=== PATIENT | male | born 1950 | race Caucasian/White ===

== ENCOUNTER 2019-08-15 06:00 | Outpatient (RCR) | payer MEDICARE, OTHER, SELFPAY | END 2019-08-29 23:59 | disposition home or self-care (01) | LOC: APT 06:00 | PROVIDERS: Family Provider Nurse Practitioner; PCP Nurse Practitioner; Referring Provider Psychiatry & Neurology Neurology; Visit Provider Psychiatry & Neurology Neurology | DX: G20 Parkinson's disease (principal) | CPT/HCPCS: 97163 ==

== ENCOUNTER 2019-10-12 06:00 | Outpatient (RCR) | payer MEDICARE, OTHER, SELFPAY | END 2019-10-29 23:59 | disposition home or self-care (01) | LOC: APT 06:00 | PROVIDERS: PCP Nurse Practitioner; Visit Provider Psychiatry & Neurology Neurology | DX: G20 Parkinson's disease (principal) | CPT/HCPCS: 97110; 97164 ==

== ENCOUNTER → 2019-10-19 09:04 | Outpatient (BNVA) | payer MEDICARE, SELFPAY | PROVIDERS: Family Provider Nurse Practitioner; PCP Nurse Practitioner; Visit Provider Nurse Practitioner | DX: G31.83 Neurocognitive disorder with Lewy bodies (principal); F02.80 Dementia in other diseases classified elsewhere, unspecified severity, without behavioral disturbance, psychotic disturbance, mood disturbance, and anxiety; E55.9 Vitamin D deficiency, unspecified; Z12.5 Encounter for screening for malignant neoplasm of prostate; Z13.6 Encounter for screening for cardiovascular disorders | CPT/HCPCS: 80053; 80061; 81000; 82306; 82533; 82607; 84439; 84443; 84481; 85025; G0103 ==

== ENCOUNTER 2019-10-30 16:14 | Outpatient (RCR) | payer MEDICARE, OTHER, SELFPAY | END 2019-11-28 23:59 | disposition home or self-care (01) | LOC: APT 16:14 | PROVIDERS: PCP Nurse Practitioner; Visit Provider Psychiatry & Neurology Neurology | DX: G20 Parkinson's disease (principal) | CPT/HCPCS: 97110; 97164 ==

== ENCOUNTER 2020-03-06 06:00 | Outpatient (RCR) | payer MEDICARE, SELFPAY | END 2020-03-30 23:59 | disposition home or self-care (01) | LOC: AST 06:00 | PROVIDERS: PCP Nurse Practitioner; Visit Provider Nurse Practitioner Gerontology | DX: R13.10 Dysphagia, unspecified (principal); G20 Parkinson's disease; R49.8 Other voice and resonance disorders | CPT/HCPCS: 92507; 92524 ==

== ENCOUNTER 2020-03-31 06:00 | Outpatient (RCR) | payer MEDICARE, SELFPAY | END 2020-04-29 23:59 | disposition home or self-care (01) | LOC: AST 06:00 | PROVIDERS: PCP Nurse Practitioner; Visit Provider Nurse Practitioner Gerontology | DX: G20 Parkinson's disease (principal); R13.10 Dysphagia, unspecified | CPT/HCPCS: 92507 ==

== ENCOUNTER 2020-04-30 06:00 | Outpatient (RCR) | payer MEDICARE, SELFPAY | END 2020-05-30 23:59 | disposition home or self-care (01) | LOC: AST 06:00 | PROVIDERS: PCP Nurse Practitioner; Visit Provider Nurse Practitioner Gerontology | DX: R13.10 Dysphagia, unspecified (principal); R49.9 Unspecified voice and resonance disorder; G20 Parkinson's disease | CPT/HCPCS: 92507 ==

== ENCOUNTER → 2020-06-17 13:52 | Outpatient (BNVA) | payer MEDICARE, SELFPAY | PROVIDERS: PCP Nurse Practitioner; Visit Provider Nurse Practitioner | DX: N39.42 Incontinence without sensory awareness (principal) | CPT/HCPCS: 81000 ==

== ENCOUNTER → 2020-07-25 14:47 | Outpatient (BNVA) | payer MEDICARE, SELFPAY | PROVIDERS: PCP Nurse Practitioner; Visit Provider Nurse Practitioner Family | DX: N39.42 Incontinence without sensory awareness (principal) | CPT/HCPCS: 81003 ==

== ENCOUNTER 2020-08-14 20:00 | Outpatient (CLI) | payer MEDICARE, SELFPAY | END 2020-08-14 20:01 | disposition home or self-care (01) | LOC: SLEEP 08-15 09:45 | PROVIDERS: PCP Nurse Practitioner; Visit Provider Nurse Practitioner | DX: G47.33 Obstructive sleep apnea (adult) (pediatric) (principal) | CPT/HCPCS: 95811 ==

== ENCOUNTER → 2020-09-03 14:32 | Outpatient (BNVA) | payer MEDICARE, SELFPAY | PROVIDERS: PCP Nurse Practitioner; Visit Provider Urology | DX: N39.42 Incontinence without sensory awareness (principal) | CPT/HCPCS: 81003 ==

== ENCOUNTER → 2020-09-10 09:51 | Outpatient (BNVA) | payer MEDICARE, SELFPAY | PROVIDERS: PCP Nurse Practitioner; Visit Provider Nurse Practitioner Family | DX: S89.92XA Unspecified injury of left lower leg, initial encounter (principal); M25.562 Pain in left knee; X58.XXXA Exposure to other specified factors, initial encounter | CPT/HCPCS: 73562 ==

== ENCOUNTER → 2020-09-16 14:17 | Outpatient (BNVA) | payer MEDICARE, SELFPAY | PROVIDERS: PCP Nurse Practitioner; Visit Provider Nurse Practitioner Family | DX: S89.92XD Unspecified injury of left lower leg, subsequent encounter (principal); M79.605 Pain in left leg; X58.XXXD Exposure to other specified factors, subsequent encounter | CPT/HCPCS: 73590 ==

== ENCOUNTER 2021-03-18 06:00 | Outpatient (RCR) | payer MEDICARE, SELFPAY | END 2021-03-30 23:59 | disposition home or self-care (01) | LOC: APT 06:00 | PROVIDERS: PCP Nurse Practitioner; Referring Provider Nurse Practitioner Family; Visit Provider Nurse Practitioner Family | DX: G20 Parkinson's disease (principal) | CPT/HCPCS: 97110; 97162 ==

== ENCOUNTER → 2021-03-25 14:28 | Outpatient (BNVA) | payer MEDICARE, SELFPAY | PROVIDERS: PCP Nurse Practitioner; Visit Provider Urology | DX: N39.42 Incontinence without sensory awareness (principal) | CPT/HCPCS: 81003 ==

== ENCOUNTER 2021-03-31 06:00 | Outpatient (RCR) | payer MEDICARE, SELFPAY | END 2021-04-29 23:59 | disposition home or self-care (01) | LOC: APT 06:00 | PROVIDERS: PCP Nurse Practitioner; Referring Provider Nurse Practitioner Family; Visit Provider Nurse Practitioner Family | DX: G20 Parkinson's disease (principal) | CPT/HCPCS: 97110; 97164; 97530 ==

== ENCOUNTER → 2021-11-04 08:27 | Outpatient (BNVA) | payer MEDICARE, SELFPAY | PROVIDERS: PCP Nurse Practitioner; Visit Provider Nurse Practitioner | DX: E55.9 Vitamin D deficiency, unspecified (principal); R53.83 Other fatigue; Z13.6 Encounter for screening for cardiovascular disorders; Z12.5 Encounter for screening for malignant neoplasm of prostate | CPT/HCPCS: 80053; 80061; 82306; 82533; 82607; 84403; 84443; 85025; G0103 ==

== ENCOUNTER → 2021-11-13 10:54 | Outpatient (BNVA) | payer MEDICARE, SELFPAY | PROVIDERS: PCP Nurse Practitioner; Referring Provider Anesthesiology Pain Medicine; Visit Provider Physician Assistant | DX: M47.816 Spondylosis without myelopathy or radiculopathy, lumbar region (principal); Z98.1 Arthrodesis status | CPT/HCPCS: 72110; 99203; 99204 ==

== ENCOUNTER 2021-12-26 05:15 | Day surgery (SDC) | payer MEDICARE, SELFPAY ==
[2021-12-24 13:34] VITALS: BMI 29.7
[2021-12-24 14:06] LABS: Basophils % 0.4 %; Eosinophils # 0.1 10^3/uL (0.0-0.8); Eosinophils % 1.3 %; Hematocrit 41.9 % (42.0-52.0); Hemoglobin 13.7 g/dL (11.7-16.6); Lymphocytes # 1.6 10^3/uL (0.8-4.8); Mean Corpuscular HGB Conc 32.7 g/dL (30.0-36.0); Mean Corpuscular Volume 94.8 fl (80-94); Mean Platelet Volume 12.3 fL (7.4-10.4); Monocytes # 0.7 10^3/uL (0.2-0.9); Monocytes % 10.6 %; Neutrophils # 4.24 10^3/uL (1.8-7.7); Neutrophils % 63.4 %; Nucleated Red Blood Cells % 0 %; Platelet Count 198 10^3/cmm (130-400); Red Blood Count 4.42 10^6/uL (4.1-5.3); Red Cell Distribution Width 13.2 % (12.1-15.1); White Blood Count 6.7 10^3/uL (4.0-10.0)
[2021-12-24 14:51] LABS: Anion Gap 14.6 (5-19); Blood Urea Nitrogen 23 mg/dL (8-23); Calcium 9.8 mg/dL (8.5-10.5); Carbon Dioxide 27 mmol/L (22-29); Chloride 106 mmol/L (98-107); Glucose 112 mg/dL (65-115); Osmolality Calculated 300 mOsm/kg (285-295); Potassium 4.6 mmol/L (3.5-5.1); Sodium 143 mmol/L (136-145)
--- NOTE | 2021-12-24 16:12 | P.ANESASSM_ITS ---
Pre-Anesthetic Assessment Height/Weight: Height 1.7 m Weight 86.183 kg Preop Diagnosis: back pain Operation Date: 12/26/21 07:00 Proposed Procedures p Spinal Cord Stimulator Placement 69388/52085/M54.9(Not Applicable) - Addison Hill DO Familial anesthetic complications: none Was Beta Kennedi taken within 24 hours: N/A Was Clonidine taken within 24 hours: N/A Social No alcohol and No tobacco Exam alert, oriented x 3, clear to auscultation bilaterally and regular rate & rhythm Airway Submandibular: within normal limits Cervical ROM: within normal limits Mallampati: Class II Dentition: chipped Pulmonary Sleep Apnea CV/HEM None reported BPH Hepatic None reported GI Gastroesophageal Reflux Disease Metabolic None reported Musc/skel None reported Neuropsych Anxiety, Depression and Neuropathy (Neuralgia ) Parkinson Gait instability Anesthetic Plan ASA status: 3 Anesthesia: Anesthesia Evaluation and General Other: We discussed risk and benefits of general anesthesia including PONV, sore throat (sometimes severe), corneal abrasion, positioning and peripheral nerve injuries, life threatening allergic reaction, post operative ICU admission requiring prolonged intubation, aspiration, stroke, heart attack, , and rare incidences of recall. Patient consents to proceed with general anesthesia. Risk of > 500 ml blood loss (7ml/kg in children): No Medications/Allergies Home Medications Medication Instructions Recorded Confirmed Last Taken Type carbidopa 25 mg-levodopa 100 mg 0.5 tab PO BID 07/25/20 12/24/21 Unknown History tablet (Sinemet) zinc 50 mg tablet 50 mg PO DAILY 07/25/20 12/24/21 Unknown History cpap machine w/humidifer #1 ea 11/15/20 11/13/21 Unknown Rx nystatin 100,000 unit/gram topical 1 applic topical BID #30 grams 11/03/21 12/24/21 Unknown Rx cream Disposable nebulizer circuit #1 ea 11/12/21 11/13/21 Unknown Rx nebulizers #1 ea 11/12/21 11/13/21 Unknown Rx calcium phosphate,dibasic 77 1 tab PO DAILY 12/24/21 12/24/21 Unknown History mg-vitamin D3 400 unit tablet Allergies Allergy/AdvReac Type Severity Reaction Status Date / Time No Known Allergies Allergy Verified 12/24/21 13:30 [facility] Anesthesia Medical History Anxiety BPH loc w urin obs/LUTS Dementia with Parkinsonism ED (erectile dysfunction) GERD (gastroesophageal reflux disease) History of seizures age 16 after head injury hit with baseball Lumbar neuralgia Left leg more than right Moderate obstructive sleep apnea Obstructive sleep apnea CPAP Urinary incontinence Surgical History History of carpal tunnel release (~2011) RIGHT WRIST History of lumbar fusion L5-S1 2018 History of neurologic surgery Brain simulator 2019 [place], [place] Status post correction of deviated nasal septum Family History Other Cancer Hypertension Lung disease Social History Smoking and tobacco status: never smoked Second hand smoke exposure: No Smoking risk assessment/counseling performed?: No Alcohol intake: current Alcohol intake frequency: 0-2 Drinks per Day Desire information about alcohol rehabilitation?: No Counseling given: No Desire information about substance/drug rehabilitation?: No Counseling given: No Adopted: No Caregiver/support person: No Lives independently: Yes Household members: spouse Housing: House Marital status: Current occupational status: retired Current occupational exposures/hazards: No History of recent travel: No Current gender identity: Male Data Anesthesia : 12/24/21 13:50 12/24/21 13:50 Short CBC 12/24/21 Range/Units 13:50 WBC 6.7 (4.0-10.0) 10^3/uL Hgb 13.7 (11.7-16.6) g/dL Hct 41.9 L (42.0-52.0) % MCV 94.8 H (80-94) fl Plt Count 198 (130-400) 10^3/cmm Neut % (Auto) 63.4 % Neut # (Auto) 4.24 (1.8-7.7) 10^3/uL BMP 12/24/21 13:50 Sodium 143 Potassium 4.6 Chloride 106 Carbon Dioxide 27 BUN 23 Creatinine 0.9 Glucose 112 Calcium 9.8 Cardiac Studies: No Data to Display
[2021-12-26] VITALS (10 sets, daily range): BP systolic 113–174; BP diastolic 60–83; PULSE 61–89; RESP 16–18; TEMP 36.1–36.4; O2SAT 93–100
--- NOTE | 2021-12-26 | SCC_ITS ---
Procedure done: 1. Placement of neurostimulator 2. Placement of battery for neurostimulator in left flank 31 seconds of fluoroscopic guidance, for a cumulative dose of 10.54 mGy, was provided to Dr. Hill by the radiology department. C-arm images of the lumbar spine were saved for the patient's permanent record. [facility]
--- NOTE | 2021-12-26 06:08 | P.ANESUD_ITS ---
Pre-Anesthetic Update Pre-Anesthetic Assessment: Date of Surgery/Procedure: 12/26/21 Preop Lula gnosis: Failed Back Syndrome, Chronic Back Pain Proposed Procedure: Operation Date: 12/26/21 07:00 Proposed Procedures p Spinal Cord Stimulator Placement 13748/39758/M54.9(Not Applicable) - Addison Catarino Liz, DO Any changes to Pre-Anesthetic Assessment?: No Last Intake: Intake Last Liquid Date 12/25/21 Last Liquid Time 18:00 Last Solid Date 12/25/21 Last Solid Time 18:00 Labs Last 48hrs: Short CBC 12/24/21 Range/Units 13:50 WBC 6.7 (4.0-10.0) 10^3/ uL Hgb 13.7 (11.7-16.6) g/dL Hct 41.9 L (42.0-52.0) % MCV 94.8 H (80-94) fl Plt Count 198 (130-400) 10^3/c mm Neut % (Auto) 63.4 % Neut # (Auto) 4.24 (1.8-7.7) 10^3/u L BMP 12/24/21 13:50 Sodium 143 Potassium 4.6 Chloride 106 Carbon Dioxide 27 BUN 23 Creatinine 0.9 Glucose 112 Calcium 9.8 Vitals: Temperature 97.4 F L 12/26/21 05:54 Temperature Source Temporal Artery S can 12/26/21 05:54 Pulse Rate 61 12/26/21 05:54 Respiratory Rate 17 12/26/21 05:54 Blood Pressure 113/73 12/26/21 05:54 Blood Pressure Elke n 86 12/26/21 05:54 Pulse Oximetry 97 12/26/21 05:54 Oxygen Delivery Me thod 12/26/21 05:58 Exam: Pre-Anes Outpt Exam: alert, oriented x 3, clear to auscultation bilaterally and regular rate & rhythm Cardiac Studies: No Data to Display
[2021-12-26] MEDS: sodium chloride 0.9% 1,000 ML 30 ML IV (06:30)
--- NOTE | 2021-12-26 06:41 | P.HP_ITS ---
Providers/Chief Complaint Primary Care Provider: Luis Fernando Berg, FITTING ROOM ASSOCIATE-C Chief Complaint: SPINAL CORD STIMULATOR PLACEMENT 38924/ History of Present Illness Zion Shaw Westover is a 71 year old male low back pain along with lower extremity pain left greater than right.? Patient does suffer from dementia and Parkinson's his is present during the exam today.? Patent states that he has had pain for many years. He states that the pain is primarily in the low back with occasional pain in the posterior thigh. He states that his pain is increased with laying on his side, standing, & walking. He states that He reports a L5-S1 fusion appr oximately 4-5 years ago.? [address] Galo in [facility]. he states that he recovered well.? His pain is progressively intensified over the years.? He states that he received a temporary stimulator recently by Dr. Brandt.? This trial gave him significant relief of his back and leg pain would like to have a permanent stimulator. Review of Systems General: Reports: 10 or more systems reviewed and unremarkable except in HPI and below Const: Denies: fever(s) or chills Card: Denies: chest pain or dyspnea on exertion Resp: Denies: dyspnea or productive cough GI: Denies: abdominal pain, nausea or vomiting Musc: Reports: back pain, extremity pain and limited range of motion Skin/Breast: Denies: changes in skin color or dry skin Neuro: Denies: numbness in extremities or weakness in extremities Psych: Denies: anxiety Devaughn/Lymph: Denies: easy bruising or easy bleeding Medications/Allergies Home Medications Medication Instructions Recorded Confirmed Last Taken Type carbidopa 25 mg-levodopa 100 mg 0.5 tab PO BID 07/25/20 12/26/21 12/26/21 03:30 History tablet (Sinemet) zinc 50 mg tablet 50 mg PO DAILY 07/25/20 12/24/21 Unknown History cpap machine w/humidifer #1 ea 11/15/20 11/13/21 Unknown Rx nystatin 100,000 unit/gram topical 1 applic topical BID #30 grams 11/03/21 12/26/21 12/25/21 Rx cream Disposable nebulizer circuit #1 ea 11/12/21 11/13/21 Unknown Rx nebulizers #1 ea 11/12/21 11/13/21 Unknown Rx calcium phosphate,dibasic 77 1 tab PO DAILY 12/24/21 12/26/21 12/25/21 History mg-vitamin D3 400 unit tablet Allergies Allergy/AdvReac Type Severity Reaction Status Date / Time No Known Allergies Allergy Verified 12/26/21 05:55 PFSH Acute PFSH: Medical History Anxiety BPH loc w urin obs/LUTS Dementia with Parkinsonism ED (erectile dysfunction) GERD (gastroesophageal reflux disease) History of seizures age 16 after head injury hit with baseball Lumbar neuralgia Left leg more than right Moderate obstructive sleep apnea Obstructive sleep apnea CPAP Urinary incontinence Surgical History History of carpal tunnel release (~2011) RIGHT WRIST History of lumbar fusion L5-S1 2018 History of neurologic surgery Brain simulator 2019 [place], [place] Status post correction of deviated nasal septum Family History Other Cancer Hypertension Lung disease Social History Smoking and tobacco status: never smoked Second hand smoke exposure: No Smoking risk assessment/counseling performed?: No Alcohol intake: current Alcohol intake frequency: 0-2 Drinks per Day Desire information about alcohol rehabilitation?: No Counseling given: No Desire information about substance/drug rehabilitation?: No Counseling given: No Adopted: No Caregiver/support person: No Lives independently: Yes Household members: spouse Housing: House Marital status: Current occupational status: retired Current occupational exposures/hazards: No History of recent travel: No Current gender identity: Male Vitals/I&O/Wt Last Vital Signs Temp 97.4 F L 12/26/21 05:54 Pulse 61 12/26/21 05:54 Resp 17 12/26/21 05:54 BP 113/73 12/26/21 05:54 Pulse Ox 97 12/26/21 05:54 O2 Del Method 12/26/21 05:58 Weight last 48 hrs Weight 190 lb Physical Exam Narrative: arrative:?? EXAM NARRATIVE: Soren jean baptiste presents wit h slow antalgic sh uffling gait.? Dem onstrates raising up onto heels and toes with difficul ty.? Moderate palp atory or percussio n pain throughout the paraspinous mu sculature of the t horacolumbar spine .? Pain with flexi on extension of th e lumbar spine.? W ell-healed incisio n in the midline o f his lumbar spine . Normal sensation to light touch th rough all dermatom al layers.? Normal sensation light t ouch down both low er extremities wit h 5/5 motor streng th throughout all motor groups.? No palpable pain over the SI joints luis aterally.? Negativ e Levy and Fabe re sign.? Negative straight leg rais e bilaterally.? Sk in is clear warm w ith normal sensati on to light touch, calves are supple with no medial th igh tenderness,? n egative Homans' si gn.? No palpable l ymphadenopathy luis aterally.? Reflexe s are 1+ and symme tric about the kne es and Achilles.? No hyperreflexia o r clonus.? Downgoi ng Babinski's bila terally.? Dorsalis pedis and posteri or tibial pulses a re 2+.? No palpabl e edema bilaterall y. HENMT:?? COMMON NORMALS: no rmocephalic and at raumatic? HEAD & S CALP: normocephali c and atraumatic Resp:?? COMMON NORMALS: no rmal respiratory e ffort Cardio:?? COMMON NORMALS: re gular rate and reg ular rhythm? RATE: regular rate? RHY THM: regular rhyth m GI:?? COMMON NORMALS: So ft to palpation an d non-tender? PALP ATION: Yes Soft to palpation :?? COMMON NORMALS: Ye s no CVA tendernes s? BLADDER/KIDNEY EXAM: Yes no CVA t enderness ABack/Pelvis:?? COMMON NORMALS: no CVA tenderness Psych:?? 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
[2021-12-26] MEDS: glycopyrrolate 0.2 mg/mL SDV 2 mL 0.1 MG IV (06:42)
--- NOTE | 2021-12-26 06:50 | ECG_ITS ---
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 Measurements Intervals [place] Rate: 63 P: 88 [place]: 171 QRS: -20 QRSD: 106 T: 28 QT: 407 QTc: 420 Interpretive Statements SINUS RHYTHM NONSPECIFIC T-WAVE ABNORMALITY No previous ECG available for comparison Electronically Signed On 12-26-2021 10:32:13 CDT by Kirsten Younger M.D. [id number]
[2021-12-26] MEDS: ceFAZolin 2,000 MG in sodium chloride 0.9% (plus) 50 ML 100 MG IV (06:58)
[2021-12-26] MEDS: vancomycin 1,000 MG SDV 1000 MG XX (08:07)
--- NOTE | 2021-12-26 08:24 | XR_ITS ---
WS: [id number] Exam: XR lumbar spine 1V [id number] Date/Time of Exam: 12/26/2021 8:25 AM Reason For Exam: OR PICS AP and lateral intraoperative C-arm images of the lower thoracic spine are submitted for evaluation. Neuro stimulator electrodes have been placed into the lower thoracic spinal canal through a posterior entry site at about the T11 level. Surgical retractors are noted at the operative site. No other sig nificant finding on this limited study.
--- NOTE | 2021-12-26 08:40 | P.OP_ITS ---
Operative Report Date of procedure: December 26, 2021 Pre-op diagnosis: Preop Diagnosis Failed Back Syndrome, Chronic Back Pain Post-op diagnosis: same Procedure done: 1. Placement of neurostimulator 2. Placement of battery for neurostimulator in left flank Surgeon: Addison Hill Wharf Operator: Pipo Cabrera Wharf Operator: The surgical endoscopist, Pipo Cabrera, PAC was needed for his expertise under the microscope. He was important and necessary throughout the procedure to complete in a safe and timely manner. He assisted with patient positioning prepping and draping tissue retraction suctioning of the operative field protection of the dural sac and tissue closure Estimated blood loss (mL): 5 Procedure: 1. Placement of neurostimulator 2. Placement of battery for neurostimulator in left flank Patient is brought to the operative suite after undergoing anesthesia all areas and patient was placed in the prone position all areas impingement well-padded patient's prepped and draped normal sterile fashion. Incision incision was made over the T9-10 level. Subperiosteal dissection was made out to the facet of the T9-10. A rongeur was used to take down the interspinous ligament at T9-10 and then the microscope was brought in all bleeders were coagulated a curved curette was used to undermine the ligamentum flavum the lamina was cut down with #2 #3 Kerrisons. Ligamentum flavum was taken down from T9-T10. The epidural space was identified. The trial was passed. And then the actual neurostimulator was passed to the center of the T7 body crossing the T7-8 disc space. C-arm imaging was brought in AP and lateral fluoroscopy ensure that the neurostimulator paddle was in the appropriate position. The wires were then tied in through a drill through the spinous processes of T10 and tied with a silk suture. Is brought to placing the battery pack. Skin incision made over the left flank. The Bovie was used to cut down into the through the dermis epidermis and a pocket was made in the fat in the left flank. Battery size trial was used to ensure appropriate size was used. And then the tunneler was passed from the ba ttery pack pouch to the T9-10 incision. The wires were passed through this tunnel into the battery pack. Battery was brought in and the 4 wires were placed in the battery and trialed. Always always good from the battery standpoint. And then the wires were coiled up and packed into the wound the main part was placed in the belly approach. And then the wounds were closed in layered fashion 0 Vicryl 2-0 Vicryl and Monocryl suture for both wounds. Sterile dressings were applied and patient was transferred to the PACU in stable condition.
[2021-12-26] MEDS: fentaNYL 50 mcg/mL INJ 2mL IVP (08:59)
[2021-12-26] MEDS: HYDROcodone-acetaminophen 5-325 mg Tablet 1 TAB PO (10:19)
--- NOTE | 2021-12-26 13:12 | ANE.PACU2 ---
Inpatient post-anesthesia follow up: Airway intact: Yes Vital signs: Temperature 97.5 F Pulse Rate 89 Respiratory Rate 17 Blood Pressure 127/67 Pulse Oximetry 93 Oxygen Delivery Me thod Room Air Oxygen Flow Rate 2 Fraction of Inspir ed Oxygen Hydration adequate: Yes Nausea and vomiting: No Pain level: 3 Mental status: Baseline
== END 2021-12-26 10:42 | disposition home or self-care (01) ==
PROVIDERS: Anesthesiology; PCP Nurse Practitioner; Visit Provider Orthopaedic Surgery
PROC: (CPT 63685; principal; 2021-12-26 07:00)
DX: G89.29 Other chronic pain (principal); M54.16 Radiculopathy, lumbar region; F03.90 Unspecified dementia, unspecified severity, without behavioral disturbance, psychotic disturbance, mood disturbance, and anxiety; G20 Parkinson's disease; F02.80 Dementia in other diseases classified elsewhere, unspecified severity, without behavioral disturbance, psychotic disturbance, mood disturbance, and anxiety; F41.9 Anxiety disorder, unspecified; N40.1 Benign prostatic hyperplasia with lower urinary tract symptoms; N13.8 Other obstructive and reflux uropathy; K21.9 Gastro-esophageal reflux disease without esophagitis; G47.33 Obstructive sleep apnea (adult) (pediatric); Z98.1 Arthrodesis status
CPT/HCPCS: 63655; 63685; 36415; 72020; 76000; 80048; 85025; 93005; C1778; C1820; J1100; J2405; J2704; J2710; J3010; J3370; J3490; J7030

== ENCOUNTER → 2022-01-06 08:10 | Outpatient (BNVA) | payer MEDICARE, SELFPAY | PROVIDERS: PCP Nurse Practitioner; Visit Provider Orthopaedic Surgery | DX: Z47.89 Encounter for other orthopedic aftercare (principal) | CPT/HCPCS: 99024 ==

== ENCOUNTER → 2022-02-12 13:25 | Outpatient (BNVA) | payer MEDICARE, SELFPAY | PROVIDERS: PCP Nurse Practitioner; Visit Provider Physician Assistant | DX: Z47.89 Encounter for other orthopedic aftercare (principal) | CPT/HCPCS: 99024 ==